=== PATIENT | male | born 1975 | race Caucasian/White ===

== ENCOUNTER 2017-12-27 16:38 | Emergency (ER) | payer BC ==
--- NOTE | 2017-12-27 17:10 | EDM.PDOC ---
ED HPI GENERAL MEDICAL PROBLEM - General Chief Complaint: Upper Extremity Injury/Pain Stated Complaint: PT HURT LT ARM Time Seen by Provider: 12/27/17 16:42 Source of Information: Reports: Patient History Limitations: Reports: No Limitations - History of Present Illness INITIAL COMMENTS - FREE TEXT/NARRATIVE: HISTORY AND PHYSICAL: History of present illness: Patient is a 42-year-old male who presents to the emergency room with complaints of left elbow pain. Approximately 4 days ago had fallen off of a ladder landing on his left side. Since that time he has had pain, soft tissue swelling to the left elbow. He does have full range of motion and denies any weakness. No previous trauma, surgeries or problems with the affected extremity. Review of systems: As per history of present illness and below otherwise all systems reviewed and negative. Past medical history: As per history of present illness and as reviewed below otherwise noncontributory. Surgical history: As per history of present illness and as reviewed below otherwise noncontributory. Social history: No reported history of drug or alcohol abuse. Family history: As per history of present illness and as reviewed below otherwise noncontributory. Physical exam: General: Well-developed and well-nourished 42-year-old male. Alert and oriented. Nontoxic appearing and in no acute distress. HEENT: Atraumatic, normocephalic, pupils equal and reactive bilaterally, negative for conjunctival pallor or scleral icterus, mucous membranes moist, throat clear, neck supple, nontender, trachea midline. No drooling or trismus noted. No meningeal signs Lungs: Clear to auscultation, breath sounds equal bilaterally, chest nontender. Heart: S1S2, regular rate and rhythm without overt murmur Abdomen: Soft, nondistended, nontender. Negative for masses or hepatosplenomegaly. Negative for costovertebral tenderness. Pelvis: Stable nontender. Genitourinary: Deferred. Rectal: Deferred. Skin: Intact, warm, dry. No lesions or rashes noted. Extremities: Atraumatic, negative for cords or calf pain. Neurovascular unremarkable. Neuro: Awake, alert, oriented. Cranial nerves II through XII unremarkable. Cerebellum unremarkable. Motor and sensory unremarkable throughout. Exam nonfocal. Notes: No acute fracture or subluxation is identified. A enthesophyte is identified extending from the olecranon process. We'll place in an david wrap and sling. Supportive care measures were reviewed and discussed. He voices understanding and is agreeable to plan of care. Denies any further questions or concerns at this time. Diagnostics: X-ray left elbow Therapeutics: David wrap, sling Prescription: Diclofenac Impression: Olecranon Bursisits Plan: 1. Rest, ice and elevate as able. Use the sling for comfort. 2. Use the prescribed anti-inflammatory as directed. May use Tylenol for breakthrough pain. 3. Follow up with the Orthopedic provider next week. Return to the ED as needed and as discussed. Definitive disposition and diagnosis as appropriate pending reevaluation and review of above. Treatments TELLER: Reports: NSAIDS left elbow Pain Score (Numeric/FACES): 6 - Related Data Allergies Allergy/AdvReac Type Severity Reaction Status Date / Time No Known Allergies Allergy Verified 12/27/17 17:03 Home Meds: Home Meds Albuterol Sulfate [Proair Hfa] 1 puff INH ASDIRECTED 12/27/17 [History] Social & Family History - Tobacco Use Smoking Status *Q: Current Every Day Smoker Years of Tobacco use: 25 Packs/Tins Daily: 1 - Recreational Drug Use Recreational Drug Use: No Review of Systems - Review of Systems Review Of Systems: ROS reveals no pertinent complaints other than HPI. ED EXAM, GENERAL - Physical Exam Exam: See Below (See dictation) Course - Vital Signs Last Recorded V/S: Last Vital Signs Temp 99.3 F 12/27/17 17:00 Pulse 102 H 12/27/17 17:00 Resp 18 12/27/17 17:00 BP 156/107 H 12/27/17 17:00 Pulse Ox 97 12/27/17 17:00 - Orders/Labs/Meds Orders: Active Orders 24 hr Category Date Time Status Elbow Min 3V Lt [CR] Stat Exams 12/27/17 17:10 Ordered Departure - Departure Time of Disposition: 17:47 Disposition: Home, Self-Care 01 Clinical Impression: Olecranon bursitis of left elbow - Discharge Information Instructions: Elbow Bursitis, [id number] Referrals: PCP,None [Primary Care Provider] - Forms: ED Department Discharge Additional Instructions: The following information is given to patients seen in the emergency department who are being discharged to home. This information is to outline your options for follow-up care. We provide all patients seen in our emergency department with a follow-up referral. The need for follow-up, as well as the timing and circumstances, are variable depending upon the specifics of your emergency department visit. If you don't have a primary care physician on staff, we will provide you with a referral. We always advise you to contact your personal physician following an emergency department visit to inform them of the circumstance of the visit and for follow-up with them and/or the need for any referrals to a consulting specialist. The emergency department will also refer you to a specialist when appropriate. This referral assures that you have the opportunity for follow-up care with a specialist. All of these measure are taken in an effort to provide you with optimal care, which includes your follow-up. Under all circumstances we always encourage you to contact your private physician who remains a resource for coordinating your care. When calling for follow-up care, please make the office aware that this follow-up is from your recent emergency room visit. If for any reason you are refused follow-up, please contact the [facility] Emergency Department at and asked to speak to the emergency department charge nurse. [facility] [address] [place] [id number] [facility] [address], [address] [place] [address] 1. Rest, ice and elevate as able. Use the sling as directed. 2. Use the prescribed anti-inflammatory as directed. May use Tylenol for breakthrough pain. 3. Follow up with the Orthopedic provider next week. Return to the ED as needed and as discussed. - My Orders Last 24 Hours: My Active Orders 12/27/17 17:10 Elbow Min 3V Lt [CR] Stat - Assessment/Plan Last 24 Hours: My Active Orders 12/27/17 17:10 Elbow Min 3V Lt [CR] Stat
--- NOTE | 2017-12-28 11:31 | CR ---
EXAM DATE: 12/27/17 PATIENT'S AGE: 42 Patient: ARNAUD ROSE Facility: [place], [place] Site . Site : [id number] Study: XRay Extremity Left elbow [id number] 5:32:37 PM Ordering Physician: Doctor Pabon Final Report: Indication: Fall from a ladder 4 days ago. Technique: Three views of the left elbow were obtained. Comparison: None Findings: No acute fracture or subluxation is identified. The joint spaces are well maintained. An enthesophyte is identified extending from olecranon process. Impression: No definite acute fracture. Dictated by Ivone Miner MD @ Dec 27 2017 5:43PM (Electronic Signature) Report Signed by Proxy. GINA
== END 2017-12-27 18:28 | disposition home or self-care (01) ==
LOC: MW.ED 16:38
DX: M70.22 Olecranon bursitis, left elbow (principal); F17.210 Nicotine dependence, cigarettes, uncomplicated; W11.XXXA Fall on and from ladder, initial encounter
CPT/HCPCS: 73080-26-LT; 73080-LT; 99283